=== PATIENT | female | born 1945 | race Hispanic/Latino ===

== ENCOUNTER 2018-05-16 22:00 | Emergency (ER) | payer OTHER ==
[2018-05-16 22:38] LABS: BASOPHILS % (AUTO) 0.7 % (0.0-5.0); EOSINOPHILS % (AUTO) 1.9 % (0.0-8.0); HEMATOCRIT 42.7 % (36-48); LYMPHOCYTES % (AUTO) 33.8 % (21.0-51.0); MEAN CORPUSCULAR HEMOGLOBIN 30.1 pg (27.0-33.0); MEAN CORPUSCULAR HGB CONC 34.1 g/dL (32.0-36.0); MEAN CORPUSCULAR VOLUME 88.2 fL (79-99); MONOCYTES % (AUTO) 5.7 % (3.0-13.0); NEUTROPHILS % (AUTO) 57.9 % (40.0-77.0); PLATELET COUNT (AUTO) 236 K/uL (130-400); RED BLOOD CELL COUNT(AUTO) 4.84 MIL/uL (4.00-5.50); RED CELL DISTRIBUTION WIDTH 14.3 % (11.0-15.5); WHITE BLOOD COUNT (AUTO) 8.8 K/uL (4.8-10.8)
[2018-05-16 22:40] LABS: APPEARANCE,URINE Clear (CLEAR); BILIRUBIN,URINE Negative (NEGATIVE); COLOR,URINE Yellow (YELLOW); GLUCOSE, URINE (UA) Negative (NEGATIVE); KETONES,URINE Negative (NEGATIVE); LEUKOCYTE ESTERASE ,URINE Negative (NEGATIVE); NITRATE,URINE Negative (NEGATIVE); OCCULT BLOOD,URINE Nonhemolyzed Trace (NEGATIVE); PROTEIN,URINE Negative (NEGATIVE)
[2018-05-16] MEDS ORDERED: HYDRALAZINE HCL 20 MG/ML VIAL ONE (22:46)
[2018-05-16 22:53] LABS: INR 0.91 (0.85-1.15); PARTIAL THROMBOPLASTIN TIME 29.3 SEC (26.3-35.5); PROTHROMBIN TIME 9.6 SEC (9.6-11.6)
[2018-05-16 22:58] LABS: CREATININE 0.9 mg/dL (0.5-1.5); POTASSIUM 3.3 mmol/L (3.5-5.1)
[2018-05-16 22:59] LABS: BACTERIA,URINE Rare /HPF (None Seen); HYALINE CASTS, URINE 0-1 /LPF (0-1 /LPF); MUCUS,URINE Few LPF (None Seen); SQUAMOUS EPITHELIAL CELL,UR 0-2 /HPF (0-2); WBC,URINE 0-1 /HPF (0-1)
[2018-05-16 23:04] LABS: ALBUMIN 3.8 g/dL (3.5-5.0); BILIRUBIN,TOTAL 0.4 mg/dL (0.2-1.0); TOTAL PROTEIN, SERUM 7.4 g/dL (6.0-8.3)
[2018-05-17] MEDS ORDERED: POTASSIUM CHLORIDE 10% ELIXIR 20 MEQ/15 ML UDCUP ONE (00:19)
== END 2018-05-17 00:45 | disposition home or self-care (01) ==
LOC: EDH 22:00
DX: I10 Essential (primary) hypertension (principal); K76.9 Liver disease, unspecified; H11.30 Conjunctival hemorrhage, unspecified eye; E89.0 Postprocedural hypothyroidism; Z88.0 Allergy status to penicillin; Z88.1 Allergy status to other antibiotic agents
CPT/HCPCS: 36415; 71045; 80053; 81001; 84484; 85025; 85610; 85730; 93005; 96365; 96366; 99285; J0360

== ENCOUNTER 2018-05-17 16:20 | Emergency (ER) | payer OTHER ==
[2018-05-17] MEDS ORDERED: CLONIDINE HCL 0.1 MG TABLET ONE (16:41)
== END 2018-05-17 18:16 | disposition home or self-care (01) ==
LOC: EDH 16:20
DX: I10 Essential (primary) hypertension (principal); Z88.0 Allergy status to penicillin; Z88.1 Allergy status to other antibiotic agents
CPT/HCPCS: 93005

== ENCOUNTER 2018-06-02 12:34 | Emergency (ER) | payer OTHER ==
[2018-06-02 13:23] LABS: BASOPHILS % (AUTO) 0.7 % (0.0-5.0); EOSINOPHILS % (AUTO) 2.4 % (0.0-8.0); HEMATOCRIT 39.3 % (36-48); LYMPHOCYTES % (AUTO) 37.5 % (21.0-51.0); MEAN CORPUSCULAR HEMOGLOBIN 29.3 pg (27.0-33.0); MEAN CORPUSCULAR HGB CONC 33.1 g/dL (32.0-36.0); MEAN CORPUSCULAR VOLUME 88.3 fL (79-99); MONOCYTES % (AUTO) 5.6 % (3.0-13.0); NEUTROPHILS % (AUTO) 53.8 % (40.0-77.0); PLATELET COUNT (AUTO) 245 K/uL (130-400); RED BLOOD CELL COUNT(AUTO) 4.46 MIL/uL (4.00-5.50); RED CELL DISTRIBUTION WIDTH 14.7 % (11.0-15.5); WHITE BLOOD COUNT (AUTO) 7.1 K/uL (4.8-10.8)
[2018-06-02 13:37] LABS: CREATININE 0.8 mg/dL (0.5-1.5); POTASSIUM 3.9 mmol/L (3.5-5.1)
[2018-06-02 13:38] LABS: INR 0.95 (0.85-1.15); PARTIAL THROMBOPLASTIN TIME 28.9 SEC (26.3-35.5)
[2018-06-02 13:38] LABS: APPEARANCE,URINE Clear (CLEAR); BILIRUBIN,URINE Negative (NEGATIVE); COLOR,URINE Yellow (YELLOW); GLUCOSE, URINE (UA) Negative (NEGATIVE); KETONES,URINE Negative (NEGATIVE); LEUKOCYTE ESTERASE ,URINE Trace (NEGATIVE); NITRATE,URINE Negative (NEGATIVE); OCCULT BLOOD,URINE Negative (NEGATIVE); PH,URINE 8.5 (5.0-8.0); PROTEIN,URINE Negative (NEGATIVE)
[2018-06-02 13:47] LABS: ALBUMIN 3.5 g/dL (3.5-5.0); BILIRUBIN,TOTAL 0.7 mg/dL (0.2-1.0); TOTAL PROTEIN, SERUM 6.4 g/dL (6.0-8.3)
[2018-06-02] MEDS ORDERED: DiphenhydrAMINE HCL 50 MG/ML VIAL ONE (14:08)
[2018-06-02] MEDS ORDERED: KETOROLAC TROMETHAMINE 15MG/ML ONE (14:08)
[2018-06-02 14:11] LABS: BACTERIA,URINE Few /HPF (None Seen); RBC,URINE 0-1 /HPF (0-1); WBC,URINE 0-1 /HPF (0-1)
== END 2018-06-02 15:59 | disposition home or self-care (01) ==
LOC: EDH 12:34
DX: R51 Headache (principal); R50.9 Fever, unspecified; R53.1 Weakness; R42 Dizziness and giddiness; I10 Essential (primary) hypertension; Z88.1 Allergy status to other antibiotic agents; Z88.0 Allergy status to penicillin; Z79.899 Other long term (current) drug therapy
CPT/HCPCS: 36415; 70450; 71045; 80053; 81001; 84484; 85025; 85610; 85730; 93005; 96361; 96374; 96375; 99285; J1200; J1885

== ENCOUNTER 2021-05-26 09:47 | Observation (INO) | payer MEDICARE ==
[2021-05-23 15:38] LABS: BASOPHILS % (AUTO) 0.8 % (0.0-5.0); EOSINOPHILS % (AUTO) 7.3 % (0.0-8.0); HEMATOCRIT 38.3 % (36-48); LYMPHOCYTES % (AUTO) 37.2 % (21.0-51.0); MEAN CORPUSCULAR HEMOGLOBIN 28.2 pg (27.0-33.0); MEAN CORPUSCULAR HGB CONC 32.6 g/dL (32.0-36.0); MEAN CORPUSCULAR VOLUME 86.3 fL (79-99); MONOCYTES % (AUTO) 6.2 % (3.0-13.0); NEUTROPHILS % (AUTO) 48.2 % (40.0-77.0); PLATELET COUNT (AUTO) 191 K/uL (130-400); RED BLOOD CELL COUNT(AUTO) 4.44 MIL/uL (4.00-5.50); RED CELL DISTRIBUTION WIDTH 13.1 % (11.0-15.5); WHITE BLOOD COUNT (AUTO) 7.2 K/uL (4.8-10.8)
[2021-05-23 15:40] LABS: APPEARANCE,URINE Cloudy (CLEAR); BILIRUBIN,URINE Negative (NEGATIVE); COLOR,URINE Dark Yellow (YELLOW); GLUCOSE, URINE (UA) Negative (NEGATIVE); KETONES,URINE Negative (NEGATIVE); LEUKOCYTE ESTERASE ,URINE Trace (NEGATIVE); NITRATE,URINE Negative (NEGATIVE); OCCULT BLOOD,URINE Negative (NEGATIVE); PROTEIN,URINE Trace mg/dL (NEGATIVE)
[2021-05-23 15:46] LABS: BACTERIA,URINE Few /HPF (None Seen); RBC,URINE 0-1 /HPF (0-1)
[2021-05-23 15:47] LABS: CREATININE 0.9 mg/dL (0.5-1.5); POTASSIUM 3.9 mmol/L (3.5-5.1)
[2021-05-23 15:47] LABS: MUCUS,URINE Moderate LPF (None Seen); SQUAMOUS EPITHELIAL CELL,UR Rare /HPF (0-2)
[2021-05-23 15:48] LABS: INR 1.03 (0.85-1.15); PROTHROMBIN TIME 11.2 SEC (9.6-11.6)
[2021-05-23 15:48] LABS: HYALINE CASTS, URINE 0-1 /LPF (0-1 /LPF)
[2021-05-25 08:29] VITALS: BP 198/85
[2021-05-26] VITALS (20 sets, daily range): BP systolic 117–173; BP diastolic 69–103
[~2021-05-26] VITALS: Ht 162.6 cm; Wt 87.0 kg
[~2021-05-26 09:47] MED LIST: ATOR40TA69 PO; CARV6.25 PO; DOXA4TAB3 PO; DULO20CA18 PO; EZET10TA48 PO; LEVO137C4 PO
[2021-05-26] MEDS: CLINDAMYCIN IVPB 900MG/50ML 50 ML IV SCH ×3 (10:00→21:37)
[2021-05-26] MEDS ORDERED: LACTATED RINGERS 1000ML 1,000 ML IV ONE (10:16)
[2021-05-26] MEDS ORDERED: LIDOCAINE PF 100MG/5ML (2%) SYRINGE 5ML ONE (10:46)
[2021-05-26] MEDS ORDERED: ONDANSETRON 4MG INJ ONE (10:46)
[2021-05-26] MEDS ORDERED: SUCCINYLCHOLINE CHLORIDE 20 MG/ML 10 ML VIAL ONE (10:46)
[2021-05-26] MEDS ORDERED: SUCCINYLCHOLINE 200MG/10ML SYR ONE (10:46)
[2021-05-26] MEDS ORDERED: ROCURONIUM 10MG/1ML SYR 10 MG/ML ML ONE (10:47)
[2021-05-26] MEDS ORDERED: NEOSTIGMINE 5MG/5ML SYR IV ONE (10:47)
[2021-05-26] MEDS ORDERED: PROPOFOL 10 MG/ML 20ML VIAL IV ONE (10:47)
[2021-05-26] MEDS ORDERED: GLYCOPYRROLATE 1 MG/5 ML SYRINGE ONE (10:47)
[2021-05-26] MEDS ORDERED: DEXAMETHASONE SOD PHOSPHATE 10MG/ML 1ML VIAL ONE (10:47)
[2021-05-26] MEDS ORDERED: MIDAZOLAM HCL 1 MG/ML 2ML VIAL ONE (10:47)
[2021-05-26] MEDS ORDERED: FENTANYL CITRATE PF 50 MCG/1 ML 2ML VIAL ONE ×2 (10:48→14:17)
[2021-05-26] MEDS ORDERED: ROPIVACAINE 0.5% 5MG/ML 30ML IJ ONE (11:27)
[2021-05-26] MEDS ORDERED: KETOROLAC 15MG/ML VIAL (15MG/ML) ONE (12:01)
[2021-05-26] MEDS ORDERED: ACETAMINOPHEN 500 MG TABLET ONE (12:01)
[2021-05-26] MEDS ORDERED: CELECOXIB 200 MG CAP ONE (12:02)
[2021-05-26] MEDS ORDERED: VANCOMYCIN 1G VIAL ONE ×2 (13:08→13:16)
[2021-05-26] MEDS ORDERED: TRANEXAMIC ACID 1000MG/10ML ONE ×2 (13:08→15:50)
[2021-05-26] MEDS ORDERED: DiphenhydrAMINE HCL 50 MG/ML VIAL IVP PRN (15:30)
[2021-05-26] MEDS ORDERED: POTASSIUM CHLORIDE 10% ELIXIR 20 MEQ/15 ML UDCUP PO PRN (15:30)
[2021-05-26] MEDS ORDERED: TRAMADOL HCL 50 MG TABLET PO PRN (15:30)
[2021-05-26] MEDS ORDERED: OXYCODONE HCL 5 MG TAB PO PRN (15:30)
[2021-05-26] MEDS ORDERED: POTASSIUM CHLORIDE 20MEQ/100ML 100 ML IV PRN (15:30)
[2021-05-26] MEDS ORDERED: LIDOCAINE HCL-MPF 1% 2ML VIAL IV PRN (15:30)
[2021-05-26] MEDS ORDERED: FERROUS FUMARATE 324 MG TABLET PO PRN (15:30)
[2021-05-26] MEDS: ACETAMINOPHEN 500 MG TABLET PO SCH ×2 (15:30→23:57)
[2021-05-26] MEDS: 0.9%NACL 1000ML 1,000 ML IV SCH (15:30)
[2021-05-26] MEDS ORDERED: CALCIUM CARB 500MG PO PRN (15:30)
[2021-05-26] MEDS ORDERED: KCL 20 MEQ ERTAB PO PRN (15:30)
[2021-05-26] MEDS ORDERED: EPHEDRINE SULFATE 50 MG/ML AMPULE ONE (15:44)
[2021-05-26] MEDS ORDERED: PHENYLEPHRINE HCL 10 MG/ML 1ML VIAL IV ONE (15:56)
[2021-05-26] MEDS: PREGABALIN 25 MG CAP PO SCH (21:34)
[2021-05-26] MEDS: CELECOXIB 200 MG CAP PO SCH (21:35)
[2021-05-26] MEDS: CARVEDILOL 6.25 MG TABLET PO SCH (21:35)
[2021-05-26] MEDS: FAMOTIDINE 20MG TAB PO SCH (21:36)
[2021-05-26] MEDS: ASPIRIN 81 MG EC TAB PO SCH (21:36)
[2021-05-27] MEDS: 0.9%NACL 1000ML 1,000 ML IV SCH ×2 (01:30→11:30)
[2021-05-27] MEDS: TEMAZEPAM 15 MG CAPSULE PO PRN (03:32)
[2021-05-27] MEDS: CLINDAMYCIN IVPB 900MG/50ML 50 ML IV SCH (03:35)
[2021-05-27 03:38] VITALS: BP 164/93
[2021-05-27 04:16] LABS: HEMATOCRIT 32.3 % (36-48); MEAN CORPUSCULAR HEMOGLOBIN 28.1 pg (27.0-33.0); MEAN CORPUSCULAR HGB CONC 33.1 g/dL (32.0-36.0); MEAN CORPUSCULAR VOLUME 84.8 fL (79-99); RED BLOOD CELL COUNT(AUTO) 3.81 MIL/uL (4.00-5.50); RED CELL DISTRIBUTION WIDTH 12.7 % (11.0-15.5); WHITE BLOOD COUNT (AUTO) 9.1 K/uL (4.8-10.8)
[2021-05-27 04:19] LABS: CREATININE 0.9 mg/dL (0.5-1.5); POTASSIUM 4.3 mmol/L (3.5-5.1)
[2021-05-27] MEDS: LEVOTHYROXINE 25 MCG TABLET PO SCH (06:17)
[2021-05-27] MEDS: LEVOTHYROXINE 112 MCG TABLET PO SCH (06:17)
[2021-05-27] MEDS: ACETAMINOPHEN 500 MG TABLET PO SCH ×3 (06:18→20:57)
[2021-05-27 07:30] VITALS: BP 144/73
[2021-05-27] MEDS: PREGABALIN 25 MG CAP PO SCH ×2 (10:05→20:56)
[2021-05-27] MEDS: CARVEDILOL 6.25 MG TABLET PO SCH ×2 (10:05→20:56)
[2021-05-27] MEDS: ASPIRIN 81 MG EC TAB PO SCH ×2 (10:05→20:56)
[2021-05-27] MEDS: EZETIMIBE 10 MG TAB PO SCH (10:06)
[2021-05-27] MEDS: POLYETHYLENE GLYCOL 3350 17 GM POWD.PACK PO SCH (10:06)
[2021-05-27] MEDS: CELECOXIB 200 MG CAP PO SCH ×2 (10:06→20:56)
[2021-05-27] MEDS: DOXAZOSIN MESYLATE 2 MG TABLET PO SCH (10:06)
[2021-05-27] MEDS: ATORVASTATIN 40 MG TABLET PO SCH (10:06)
[2021-05-27] MEDS: FAMOTIDINE 20MG TAB PO SCH ×2 (10:06→20:56)
[2021-05-27 11:00] VITALS: BP 152/79
[2021-05-27] MEDS: OXYCODONE HCL 5 MG TAB PO PRN ×2 (13:14→22:44)
[2021-05-27 16:00] VITALS: BP 156/76
[2021-05-27 20:00] VITALS: BP 132/50
[2021-05-27] MEDS: KETOROLAC 15MG/ML VIAL (15MG/ML) IV PRN (23:57)
[2021-05-28] VITALS: BP 130/58
[2021-05-28] MEDS: LEVOTHYROXINE 112 MCG TABLET PO SCH (05:31)
[2021-05-28] MEDS: LEVOTHYROXINE 25 MCG TABLET PO SCH (05:31)
[2021-05-28] MEDS: OXYCODONE HCL 5 MG TAB PO PRN ×3 (05:32→19:47)
[2021-05-28] MEDS: ACETAMINOPHEN 500 MG TABLET PO SCH ×2 (05:32→22:43)
[2021-05-28 08:00] VITALS: BP 129/61
[2021-05-28] MEDS: PREGABALIN 25 MG CAP PO SCH ×2 (08:51→19:47)
[2021-05-28] MEDS: FAMOTIDINE 20MG TAB PO SCH ×2 (08:51→19:46)
[2021-05-28] MEDS: CARVEDILOL 6.25 MG TABLET PO SCH ×2 (08:52→19:47)
[2021-05-28] MEDS: ATORVASTATIN 40 MG TABLET PO SCH (08:52)
[2021-05-28] MEDS: CELECOXIB 200 MG CAP PO SCH ×2 (08:52→19:46)
[2021-05-28] MEDS: ASPIRIN 81 MG EC TAB PO SCH ×2 (08:53→19:46)
[2021-05-28] MEDS: DOXAZOSIN MESYLATE 2 MG TABLET PO SCH (08:53)
[2021-05-28] MEDS: POLYETHYLENE GLYCOL 3350 17 GM POWD.PACK PO SCH (08:53)
[2021-05-28] MEDS: EZETIMIBE 10 MG TAB PO SCH (08:53)
[2021-05-28 12:00] VITALS: BP 125/67
[2021-05-28 16:00] VITALS: BP 126/75
[2021-05-28] MEDS: TEMAZEPAM 15 MG CAPSULE PO PRN (19:47)
[2021-05-28 20:00] VITALS: BP 143/74
[2021-05-29] VITALS: BP 131/73
[2021-05-29 04:00] VITALS: BP 138/75
[2021-05-29] MEDS: LEVOTHYROXINE 112 MCG TABLET PO SCH (04:03)
[2021-05-29] MEDS: LEVOTHYROXINE 25 MCG TABLET PO SCH (04:03)
[2021-05-29] MEDS: OXYCODONE HCL 5 MG TAB PO PRN (04:03)
[2021-05-29] MEDS: ASPIRIN 81 MG EC TAB PO SCH ×2 (07:41→20:17)
[2021-05-29] MEDS: ACETAMINOPHEN 500 MG TABLET PO SCH ×3 (07:41→21:25)
[2021-05-29] MEDS: DOXAZOSIN MESYLATE 2 MG TABLET PO SCH (07:42)
[2021-05-29] MEDS: POLYETHYLENE GLYCOL 3350 17 GM POWD.PACK PO SCH (07:42)
[2021-05-29] MEDS: CELECOXIB 200 MG CAP PO SCH ×2 (07:42→20:17)
[2021-05-29] MEDS: PREGABALIN 25 MG CAP PO SCH ×2 (07:42→20:17)
[2021-05-29] MEDS: EZETIMIBE 10 MG TAB PO SCH (07:42)
[2021-05-29] MEDS: ATORVASTATIN 40 MG TABLET PO SCH (07:42)
[2021-05-29] MEDS: FAMOTIDINE 20MG TAB PO SCH ×2 (07:43→20:17)
[2021-05-29] MEDS: CARVEDILOL 6.25 MG TABLET PO SCH ×2 (07:48→20:21)
[2021-05-29 08:14] VITALS: BP 138/69
[2021-05-29 11:23] VITALS: BP 135/76
[2021-05-29] MEDS ORDERED: BISACODYL 10 MG SUPP.RECT RC PRN (15:30)
[2021-05-29 16:23] VITALS: BP 104/55
[2021-05-29] MEDS: ONDANSETRON 4MG INJ IVP PRN (17:00)
[2021-05-29 20:00] VITALS: BP 152/80
[2021-05-29] MEDS ORDERED: MAGNESIUM CITRATE 296 ML SOLUTION PO ONE (20:00)
[2021-05-29] MEDS: TEMAZEPAM 15 MG CAPSULE PO PRN (21:21)
[2021-05-30] VITALS (7 sets, daily range): BP systolic 111–148; BP diastolic 46–69
[2021-05-30] MEDS: OXYCODONE HCL 5 MG TAB PO PRN ×3 (00:12→21:58)
[2021-05-30] MEDS: KETOROLAC 15MG/ML VIAL (15MG/ML) IV PRN (01:00)
[2021-05-30] MEDS: LEVOTHYROXINE 25 MCG TABLET PO SCH (06:27)
[2021-05-30] MEDS: LEVOTHYROXINE 112 MCG TABLET PO SCH (06:27)
[2021-05-30] MEDS: ACETAMINOPHEN 500 MG TABLET PO SCH ×2 (06:28→15:51)
[2021-05-30] MEDS: ASPIRIN 81 MG EC TAB PO SCH ×2 (08:48→20:34)
[2021-05-30] MEDS: POLYETHYLENE GLYCOL 3350 17 GM POWD.PACK PO SCH (08:48)
[2021-05-30] MEDS: FAMOTIDINE 20MG TAB PO SCH ×2 (08:49→20:34)
[2021-05-30] MEDS: ATORVASTATIN 40 MG TABLET PO SCH (08:49)
[2021-05-30] MEDS: PREGABALIN 25 MG CAP PO SCH ×2 (08:49→20:34)
[2021-05-30] MEDS: DOXAZOSIN MESYLATE 2 MG TABLET PO SCH (08:49)
[2021-05-30] MEDS: CARVEDILOL 6.25 MG TABLET PO SCH ×2 (08:49→20:35)
[2021-05-30] MEDS: CELECOXIB 200 MG CAP PO SCH ×2 (08:49→20:34)
[2021-05-30] MEDS: EZETIMIBE 10 MG TAB PO SCH (08:49)
[2021-05-30] MEDS ORDERED: AEC81 PO (20:19)
[2021-05-30] MEDS ORDERED: HYDR-4060 PO (20:19)
[2021-05-30] MEDS: ONDANSETRON 4MG INJ IVP PRN (21:16)
[2021-05-31] MEDS: ACETAMINOPHEN 500 MG TABLET PO SCH ×2 (00:54→06:31)
[2021-05-31] MEDS: OXYCODONE HCL 5 MG TAB PO PRN (02:37)
[2021-05-31 03:18] VITALS: BP 126/50
[2021-05-31] MEDS: LEVOTHYROXINE 25 MCG TABLET PO SCH (06:10)
[2021-05-31] MEDS: LEVOTHYROXINE 112 MCG TABLET PO SCH (06:10)
[2021-05-31] MEDS: POLYETHYLENE GLYCOL 3350 17 GM POWD.PACK PO SCH (07:28)
[2021-05-31] MEDS: CELECOXIB 200 MG CAP PO SCH (07:28)
[2021-05-31] MEDS: ASPIRIN 81 MG EC TAB PO SCH (07:29)
[2021-05-31] MEDS: CARVEDILOL 6.25 MG TABLET PO SCH (07:29)
[2021-05-31] MEDS: PREGABALIN 25 MG CAP PO SCH (07:29)
[2021-05-31] MEDS: ATORVASTATIN 40 MG TABLET PO SCH (07:29)
[2021-05-31] MEDS: FAMOTIDINE 20MG TAB PO SCH (07:29)
[2021-05-31] MEDS: DOXAZOSIN MESYLATE 2 MG TABLET PO SCH (07:30)
[2021-05-31] MEDS: EZETIMIBE 10 MG TAB PO SCH (07:30)
[2021-05-31 08:10] VITALS: BP 137/63
[2021-05-31 11:29] VITALS: BP 150/73
== END 2021-05-31 13:50 | disposition home health service (06) ==
LOC: DAH 09:47 → DAHIP 09:48 → 4AH 17:46
PROVIDERS: ADMIT Orthopaedic Surgery; ATTEND Orthopaedic Surgery
DX: M17.12 Unilateral primary osteoarthritis, left knee (principal); Z20.822 Contact with and (suspected) exposure to COVID-19; I10 Essential (primary) hypertension; K21.9 Gastro-esophageal reflux disease without esophagitis; F41.8 Other specified anxiety disorders; E66.9 Obesity, unspecified; E89.0 Postprocedural hypothyroidism; Z90.710 Acquired absence of both cervix and uterus; Z79.899 Other long term (current) drug therapy
CPT/HCPCS: 27447; 36415 ×2; 64447; 76942; 80048 ×2; 81001; 85025; 85027; 85610; 87088; 87635; 87641; 96365; 96366; 96375 ×2; 96376; 97039 ×5; 97116 ×9; 97161; 97530 ×7; A4215; A4216; A4221; A4222; A4223; A4649 ×5; A4663; A5120; A9272; C1776; C9803; G0378 ×112; J0330 ×2; J1100; J1885 ×3; J2001; J2250; J2370; J2405 ×3; J2704; J2710; J2795; J3010 ×2; J3370 ×2; J3490 ×9; J7120 ×2

== ENCOUNTER → 2021-10-07 | Outpatient (CLI) | payer OTHER ==
[~2021-10-07] MED LIST changes: +AEC81 PO; -DULO20CA18 PO; +HYDR-4060 PO; +TRAZ-185 PO
== END | disposition home or self-care (01) ==
LOC: RAH 13:34
PROVIDERS: ATTEND Internal Medicine Cardiovascular Disease
DX: Z13.6 Encounter for screening for cardiovascular disorders (principal)
CPT/HCPCS: 75571

== ENCOUNTER → 2022-02-08 | Outpatient (CLI) | payer MEDICARE ==
[2022-02-08 13:37] LABS: BASOPHILS % (AUTO) 0.9 % (0.0-5.0); EOSINOPHILS % (AUTO) 5.2 % (0.0-8.0); HEMATOCRIT 37.3 % (36-48); LYMPHOCYTES % (AUTO) 35.2 % (21.0-51.0); MEAN CORPUSCULAR HEMOGLOBIN 29.1 pg (27.0-33.0); MEAN CORPUSCULAR VOLUME 88.2 fL (79-99); MONOCYTES % (AUTO) 6.6 % (3.0-13.0); NEUTROPHILS % (AUTO) 51.9 % (40.0-77.0); PLATELET COUNT (AUTO) 223 K/uL (130-400); RED BLOOD CELL COUNT(AUTO) 4.23 MIL/uL (4.00-5.50); WHITE BLOOD COUNT (AUTO) 6.4 K/uL (4.8-10.8)
[2022-02-08 14:16] LABS: ALANINE AMINOTRANSFERASE 21 U/L (12-78); ALBUMIN 3.6 g/dL (3.5-5.0); ASPARTATE AMINOTRANSFERASE 24 U/L (10-37); CARBON DIOXIDE 35 mmol/L (21-32); CHLORIDE 101 mmol/L (101-111); GLOMERULAR FILTR. RATE CALC 57 mL/min (>60); GLUCOSE,RANDOM 112 mg/dL (70-105); POTASSIUM 3.2 mmol/L (3.5-5.1); SODIUM SERUM 141 mmol/L (136-145); THYROID STIMULATING HORMONE 3.51 uIU/mL (0.36-3.74); UREA NITROGEN, BLOOD 20 mg/dL (7-18)
[2022-02-08 14:17] LABS: CRP QUANTITATIVE < 2.00 mg/L (0.00-9.0)
[2022-02-08 14:40] LABS: ERYTHROCYTE SEDIMENTATION RATE 15 MM/HR (0-30)
[2022-02-09 05:06] LABS: HEPATITIS A IGM ANTIBODY Non-Reactive (Nonreactive); HEPATITIS B CORE IGM ANTIBODY Non-Reactive (Negative); HEPATITIS B SURFACE ANTIGEN Non-Reactive (Nonreactive); HEPATITIS C ANTIBODY Non-Reactive (Nonreactive)
== END | disposition home or self-care (01) ==
LOC: LAB 11:35
PROVIDERS: ATTEND Psychiatry & Neurology Neurology
DX: G60.3 Idiopathic progressive neuropathy (principal); F33.1 Major depressive disorder, recurrent, moderate; E55.9 Vitamin D deficiency, unspecified; F41.9 Anxiety disorder, unspecified; R20.2 Paresthesia of skin; Z79.899 Other long term (current) drug therapy
CPT/HCPCS: 36415; 80053; 80074; 82306; 82533; 82607; 82627; 82670; 82746; 83001; 83002; 83090; 83540; 83735; 83921; 84144; 84207; 84270; 84403; 84425; 84439; 84443; 84481; 85025; 85651; 86038; 86140; 86592

== ENCOUNTER → 2022-02-21 | Outpatient (CLI) | payer MEDICARE | END | disposition home or self-care (01) | LOC: LAB 13:21 | PROVIDERS: ATTEND Internal Medicine Cardiovascular Disease | DX: I10 Essential (primary) hypertension (principal); E03.9 Hypothyroidism, unspecified; E78.5 Hyperlipidemia, unspecified; Z79.899 Other long term (current) drug therapy | CPT/HCPCS: 36415; 82652; 83880; 84443 ==

== ENCOUNTER → 2022-05-02 | Outpatient (CLI) | payer MEDICARE | END | disposition home or self-care (01) | LOC: SLP 20:59 | PROVIDERS: ATTEND Internal Medicine Cardiovascular Disease | DX: G47.33 Obstructive sleep apnea (adult) (pediatric) (principal) | CPT/HCPCS: 95810 ==

== ENCOUNTER → 2022-07-17 | Outpatient (CLI) | payer MEDICARE | END | disposition home or self-care (01) | LOC: SLP 20:37 | PROVIDERS: ATTEND Internal Medicine Cardiovascular Disease | DX: G47.33 Obstructive sleep apnea (adult) (pediatric) (principal) | CPT/HCPCS: 95811 ==

== ENCOUNTER → 2022-09-20 | Outpatient (CLI) | payer MEDICARE ==
[2022-09-20 11:51] LABS: BASOPHILS # (AUTO) 0.05 K/uL (0.00-0.20); BASOPHILS % (AUTO) 0.4 % (0.0-5.0); EOSINOPHILS # (AUTO) 0.29 K/uL (0.00-0.70); EOSINOPHILS % (AUTO) 2.4 % (0.0-8.0); HEMATOCRIT 37.8 % (36-48); IMMATURE GRANULOCYTE ABSOLUTE 0.05 K/uL (0-1); LYMPHOCYTES # (AUTO) 1.9 K/uL (1.0-4.8); LYMPHOCYTES % (AUTO) 15.7 % (21.0-51.0); MEAN CORPUSCULAR HEMOGLOBIN 29.6 pg (27.0-33.0); MEAN CORPUSCULAR HGB CONC 33.6 g/dL (32.0-36.0); MEAN CORPUSCULAR VOLUME 88.1 fL (79-99); MONOCYTES # (AUTO) 0.8 K/uL (0.1-1.0); MONOCYTES % (AUTO) 6.8 % (3.0-13.0); NEUTROPHILS # (AUTO) 8.9 K/uL (1.8-7.7); NEUTROPHILS % (AUTO) 74.3 % (40.0-77.0); PLATELET COUNT (AUTO) 351 K/uL (130-400); RED BLOOD CELL COUNT(AUTO) 4.29 MIL/uL (4.00-5.50); RED CELL DISTRIBUTION WIDTH 12.9 % (11.0-15.5)
[2022-09-20 12:04] LABS: CREATININE 0.9 mg/dL (0.5-1.5); POTASSIUM 3.1 mmol/L (3.5-5.1)
== END | disposition home or self-care (01) ==
LOC: LAB 10:50
PROVIDERS: ATTEND Internal Medicine Cardiovascular Disease
DX: I25.10 Atherosclerotic heart disease of native coronary artery without angina pectoris (principal)
CPT/HCPCS: 36415; 80048; 85025

== ENCOUNTER → 2023-01-03 | Outpatient (CLI) | payer MEDICARE ==
[2023-01-03 12:25] LABS: CREATININE 1.1 mg/dL (0.5-1.5); POTASSIUM 4.6 mmol/L (3.5-5.1)
== END | disposition home or self-care (01) ==
LOC: LAB 10:44
PROVIDERS: ATTEND Internal Medicine Cardiovascular Disease
DX: I10 Essential (primary) hypertension (principal)
CPT/HCPCS: 36415; 80048

== ENCOUNTER → 2023-02-09 | Outpatient (CLI) | payer MEDICARE ==
[2023-02-09 12:56] LABS: CREATININE 1.1 mg/dL (0.5-1.5); POTASSIUM 4.7 mmol/L (3.5-5.1)
== END | disposition home or self-care (01) ==
LOC: LAB 09:10
PROVIDERS: ATTEND Internal Medicine Cardiovascular Disease
DX: M17.12 Unilateral primary osteoarthritis, left knee (principal)
CPT/HCPCS: 36415; 80048

== ENCOUNTER → 2023-05-15 | Outpatient (CLI) | payer MEDICARE ==
[2023-05-15 12:33] LABS: CREATININE 1.2 mg/dL (0.5-1.0); POTASSIUM 3.7 mmol/L (3.5-5.1)
== END | disposition home or self-care (01) ==
LOC: RAH 11:35
PROVIDERS: ATTEND Internal Medicine Cardiovascular Disease
DX: R06.09 Other forms of dyspnea (principal)
CPT/HCPCS: 36415; 71046; 80048

== ENCOUNTER → 2023-06-08 | Outpatient (CLI) | payer MEDICARE | END | disposition home or self-care (01) | LOC: RAH 09:58 | PROVIDERS: ATTEND Internal Medicine Cardiovascular Disease | DX: I08.0 Rheumatic disorders of both mitral and aortic valves (principal); R06.09 Other forms of dyspnea | CPT/HCPCS: 93306 ==

== ENCOUNTER → 2023-06-20 | Outpatient (CLI) | payer MEDICARE | END | disposition home or self-care (01) | LOC: CANSCHCLI → RESP 15:18 | PROVIDERS: ATTEND Internal Medicine Cardiovascular Disease | DX: R06.09 Other forms of dyspnea (principal) | CPT/HCPCS: 94010 ==

== ENCOUNTER → 2023-10-30 | Outpatient (CLI) | payer MEDICARE ==
[2023-10-30 09:45] LABS: HEMATOCRIT 36.7 % (36-48); MEAN CORPUSCULAR HEMOGLOBIN 29.1 pg (27.0-33.0); MEAN CORPUSCULAR HGB CONC 32.4 g/dL (32.0-36.0); MEAN CORPUSCULAR VOLUME 89.7 fL (79-99); PLATELET COUNT (AUTO) 183 K/uL (130-400); RED BLOOD CELL COUNT(AUTO) 4.09 MIL/uL (4.00-5.50); RED CELL DISTRIBUTION WIDTH 13.1 % (11.0-15.5); WHITE BLOOD COUNT (AUTO) 7.6 K/uL (4.8-10.8)
[2023-10-30 09:56] LABS: HEMOGLOBIN A1C 5.8 % (4.0-6.0)
[2023-10-30 10:06] LABS: ALBUMIN 3.4 g/dL (3.5-5.0); BILIRUBIN,TOTAL 0.5 mg/dL (0.2-1.0); CREATININE 1.3 mg/dL (0.5-1.0); THYROID STIMULATING HORMONE 0.08 uIU/mL (0.36-3.74); TOTAL PROTEIN, SERUM 6.6 g/dL (6.0-8.3)
[2023-10-30 11:51] LABS: BASOPHILS % (MANUAL) 3 % (0-2); EOSINOPHILS % (MANUAL) 5 % (1-6); LYMPHOCYTES % (MANUAL) 25 % (22-44); MAN.DIFF COMMENT-IMPRESSION MANUAL DIFFERENTIAL; MONOCYTES % (MANUAL) 6 % (2-9); SEGMENTED NEUTROPHILS % 61 % (40-70); TOTAL CELLS COUNTED 100; WBC MORPHOLOGY HYPERSEGMENT NEUT 2+
[2023-10-30 11:52] LABS: PLATELET MORPHOLOGY COMMENT ADEQUATE
== END | disposition home or self-care (01) ==
LOC: LAB 09:01
PROVIDERS: ATTEND Internal Medicine
DX: Z13.1 Encounter for screening for diabetes mellitus (principal); Z13.220 Encounter for screening for lipoid disorders; Z13.29 Encounter for screening for other suspected endocrine disorder; Z00.00 Encounter for general adult medical examination without abnormal findings; Z79.899 Other long term (current) drug therapy
CPT/HCPCS: 36415; 80053; 80061; 82043; 82570; 83036; 84443; 85025

== ENCOUNTER → 2023-12-28 | Outpatient (CLI) | payer MEDICARE ==
--- NOTE | 2023-12-28 16:55 | HMCIMG ---
CHEST 2VWS HISTORY: Shortness of breath COMPARISON: 05/15/2023 FINDINGS: Frontal and lateral projections of the chest were obtained. There is no acute pulmonary infiltrates or failure. The heart is not enlarged. Aortic calcifications are seen. Prominent interstitial markings are seen. Degenerative changes are seen of the thoracolumbar spine. IMPRESSION: 1. No acute pulmonary infiltrates.
== END | disposition home or self-care (01) ==
LOC: RAH 15:44
PROVIDERS: ATTEND Internal Medicine
DX: J84.89 Other specified interstitial pulmonary diseases (principal); R06.02 Shortness of breath; M47.815 Spondylosis without myelopathy or radiculopathy, thoracolumbar region; I70.0 Atherosclerosis of aorta
CPT/HCPCS: 71046

== ENCOUNTER → 2024-05-13 | Outpatient (CLI) | payer MEDICARE ==
[~2024-05-13] MED LIST changes: +AMLO2.5T4 PO; -CARV6.25 PO; -DOXA4TAB3 PO; -EZET10TA48 PO; -HYDR-4060 PO; +HYDR50TA PO; -LEVO137C4 PO; +LEVO137C5 PO; +LOSA50TA64 PO; +SERT-440 PO; +SPIR25TA6 PO; +TEMA30CA PO; +TRAM50TA4 PO; -TRAZ-185 PO
--- NOTE | 2024-05-13 16:43 | HMCIMG ---
SACRUM/COCCYX 2+VWS HISTORY: Contusion of lower back COMPARISON: None TECHNIQUE: 3 images of sacrum and coccyx were obtained. FINDINGS: There is no acute displaced fracture or dislocation. Degenerative changes are seen. IMPRESSION: 1. Findings as described above.
--- NOTE | 2024-05-13 16:46 | HMCIMG ---
LUMBAR SPINE 2-3VWS HISTORY: Contusion of lower back COMPARISON: None FINDINGS: 3 images of lumbar spine were obtained. Vascular calcifications are seen. There are degenerative changes mid lumbar spine spondylosis. There is straightening of normal lordotic curvature which may be related to muscle spasm or positioning. No loss of vertebral height is seen. No fracture or dislocation is seen. Degenerative changes are seen. IMPRESSION: 1. No fracture is seen. DJD lumbar spine spondylosis.
== END | disposition home or self-care (01) ==
LOC: RAH 14:46
PROVIDERS: ATTEND Internal Medicine
DX: S30.0XXD Contusion of lower back and pelvis, subsequent encounter (principal); M47.816 Spondylosis without myelopathy or radiculopathy, lumbar region; M47.818 Spondylosis without myelopathy or radiculopathy, sacral and sacrococcygeal region; M48.8X6 Other specified spondylopathies, lumbar region; Z91.81 History of falling; X58.XXXD Exposure to other specified factors, subsequent encounter
CPT/HCPCS: 72100; 72220

== ENCOUNTER → 2024-10-29 | Outpatient (CLI) | payer MEDICARE ==
[2024-10-29 09:51] LABS: IMMATURE GRANULOCYTE ABSOLUTE 0.00 K/uL (0-1); NUCLEATED RED BLOOD CELLS 0.0 % (0.0-0.19); PLATELET COUNT (AUTO) 181 K/uL (130-400); RED BLOOD CELL COUNT(AUTO) 3.93 MIL/uL (4.00-5.50); RED CELL DISTRIBUTION WIDTH 13.6 % (11.0-15.5); WHITE BLOOD COUNT (AUTO) 6.0 K/uL (4.8-10.8)
[2024-10-29 10:09] LABS: ASPARTATE AMINOTRANSFERASE 30.0 U/L (10-37); CREATININE 1.1 mg/dL (0.5-1.0); GLOMERULAR FILTR. RATE CALC 51.0 mL/min (>90); GLUCOSE,RANDOM 104.0 mg/dL (70-105); LDL DIRECT 146.0 mg/dL (0-99); SODIUM SERUM 137.0 mmol/L (136-145); TOTAL PROTEIN, SERUM 6.5 g/dL (6.0-8.3); UREA NITROGEN, BLOOD 29.0 mg/dL (7-18)
[2024-10-30 12:39] LABS: INR 0.99 (0.85-1.15)
== END | disposition home or self-care (01) ==
LOC: LAB 09:00
PROVIDERS: ATTEND Internal Medicine
DX: E78.2 Mixed hyperlipidemia (principal); K76.9 Liver disease, unspecified; E03.9 Hypothyroidism, unspecified; J44.9 Chronic obstructive pulmonary disease, unspecified; L40.50 Arthropathic psoriasis, unspecified
CPT/HCPCS: 36415; 80053; 80061; 82105; 82140; 84443; 85025; 85610; 85730